=== PATIENT | male | born 1995 | race Caucasian/White ===

== ENCOUNTER 2018-03-11 22:41 | Emergency (ER) | payer SELFPAY ==
[~2018-03-11] VITALS: Ht 172.7 cm; Wt 97.8 kg
--- NOTE | 2018-03-11 22:44 | ED.ADGEN ---
Past History Past Medical History: Other Adult General Chief Complaint Chief Complaint ".. I got hit in the head with a log.."..." We were trimming tree... and the log fell about 25 feet and hit me in the head and this shoulder (Rt.).. It did not knock me out.... but I did see stars... and I was hurting pretty bad until I got a couple drinks onboard..." HPI HPI Patient is a 22 year old male who presents with above hx and complaints of headache and Lt shoulder and chest pain. Pt. injury occurred approximately 2 hrs ago. Pt. has 10 x 8 cm hematoma to posterior Lt. scalp, abrasion and contusion to Lt shoulder and chest. Pt. patient does give a history of a remote head concussion prior to today's injury. Patient did consume some alcohol before arrival to treat his pain. Patient is ambulatory without problems. Friends with him say his mental status is somewhat off. Patient has no pre-or post event amnesia. Patient normally follows with Dr. Hilton Review of Systems Review of Systems Constitutional: Denies fever or chills [] Eyes: Denies change in visual acuity, redness, or eye pain [] HENT: Denies nasal congestion or sore throat [] Respiratory: Denies cough or shortness of breath [] Cardiovascular: No additional information not addressed in HPI [] GI: Denies abdominal pain, nausea, vomiting, bloody stools or diarrhea [] : Denies dysuria or hematuria [] Musculoskeletal: Denies back pain or joint pain [] Integument: Denies rash or skin lesions [] Neurologic: Complains of headache. Denies focal weakness or sensory changes [] Endocrine: Denies polyuria or polydipsia [] All other systems were reviewed and found to be within normal limits, except as documented in this note. Family History Family History Noncontributory Current Medications Current Medications Current Medications Medications (Trade) Dose Ordered Sig/Katina Start Time Stop Time Status Last Admin Dose Admin Ondansetron HCl (Zofran Odt) 8 mg 1X ONCE 03/11/18 23:00 03/11/18 23:31 DC 03/11/18 23:00 8 MG Allergies Allergies Allergies Coded Allergies Type Severity Reaction Last Updated Verified No Known Drug Allergies 04/01/15 No Physical Exam Physical Exam Constitutional: Well developed, well nourished, moderately acute distress, non- toxic appearance. [] HENT: Normocephalic, contusion left posterior scalp area as per history of present illness, bilateral external ears normal, oropharynx moist, no oral exudates, nose normal. [] Eyes: PERRLA, EOMI, conjunctiva normal, no discharge. [] Neck: Normal range of motion, muscle tenderness, supple, no stridor. [] Some muscle spasms noted. No mid line tenderness. Cardiovascular:Heart rate regular rhythm, no murmur [] Lungs & Thorax: Bilateral breath sounds equal apex with scattered wheezes auscultation []contusions to posterior left chest wall Abdomen: Bowel sounds normal, soft, no tenderness, no masses, no pulsatile masses. [] Skin: Warm, dry, no erythema, no rash. [] Back: No tenderness, no CVA tenderness. [] Extremities: No tenderness, no cyanosis, no clubbing, ROM intact, no edema. Except Contusion and abrasion left shoulder. Distal neurovascular grossly intact. DTRs are +2 at patella and brachial. Clinical Cytogenetics Director equal. Right-hand dominant. Neurologic: Alert and oriented X 3, normal motor function, normal sensory function, no focal deficits noted. Psychologic: Affect anxious., judgement normal, mood normal. [] Current Patient Data Vital Signs Vital Signs Date Time Temp Pulse Resp B/P (MAP) Pulse Ox O2 Delivery O2 Flow Rate FiO2 03/11/18 22:43 98.3 87 20 100 Room Air EKG EKG [] Radiology/Procedures Radiology/Procedures I interpretation of CT of head and cervical show[] Course & Med Decision Making Course & Med Decision Making Pertinent Labs and Imaging studies reviewed. (See chart for details) Avoid further alcohol tonight. Take Tylenol for pain. Follow-up primary care. Return if any concerns. Concussion precautions given. [] Final Impression Final Impression 1. Contusion 2. Concussion[] Dragon Disclaimer Dragon Disclaimer This electronic medical record was generated, in whole or in part, using a voice recognition dictation system. ÁLVARO DELAROSA MD Mar 11, 2018 22:44
[2018-03-11] MEDS ORDERED: ONDANSETRON ODT 4 MG TAB.RAPDIS PO ONE (23:00)
--- NOTE | 2018-03-11 23:52 | RAD ---
PQRS Compliance Statement: One or more of the following individualized dose reduction techniques were utilized for this examination: 1. Automated exposure control 2. Adjustment of the mA and/or kV according to patient size 3. Use of iterative reconstruction technique CT HEAD AND CERVICAL SPINE WITHOUT CONTRAST History: Hit with log tonight. Swelling and abrasion at back left side of head Comparison: None. Procedure: Axial images are obtained of the head from the skull base through the vertex without IV contrast. Noncontrast helical CT of the cervical spine was performed. Axial, sagittal, and coronal reconstructions were obtained. Findings: The ventricles and sulci are normal for the patient's age. No mass-effect, midline shift, hemorrhage or obvious acute infarction is identified. Basilar cisterns are patent. Bone windows demonstrate no significant calvarial abnormality. Mild induration left parietal scalp. Mucosal thickening bilateral ethmoid sinuses. Mastoid air cells are well aerated. There is no evidence of acute fracture or acute malalignment of the cervical spine. Straightening and mild reversal of normal cervical lordosis may be positional or due to muscle spasm. The facet joints are intact. There is no disc space narrowing. Craniovertebral junction is normal. No significant narrowing of the central canal is identified. Visualized soft tissues of the neck demonstrate no significant abnormalities. The visualized lung apices are clear. IMPRESSION: 1. No acute intracranial abnormality. 2. No acute fracture of the cervical spine. Electronically signed by: Bart Verma MD (03/11/2018 11:48 PM) [facility]
[2018-03-12 00:08] VITALS: BP 148/78
--- NOTE | 2018-03-12 08:07 | RAD ---
CHEST PA LATERAL, SHOULDER 2+V LEFT Technique: PA and lateral views of the chest were obtained. Clinical History: Hit with log tonight Comparison: None. Findings: The heart and pulmonary vasculature appear within normal limits. The lungs are clear. The pleural margins are clear. Impression: No acute chest process is seen. End impression Three views left shoulder History: pain Internally and externally rotated AP of shoulder obtained, as well as "Y" view. The glenohumeral relationship is normal. The visualized osseous structures appear normal. Impression: No acute findings. end impression Electronically signed by: Nico Rosa III, MD (03/12/2018 8:04 AM) [facility]
== END 2018-03-12 00:09 | disposition home or self-care (01) ==
LOC: ER 22:41
DX: S06.0X0A Concussion without loss of consciousness, initial encounter (principal); S40.012A Contusion of left shoulder, initial encounter; S20.212A Contusion of left front wall of thorax, initial encounter; S00.03XA Contusion of scalp, initial encounter; W20.8XXA Other cause of strike by thrown, projected or falling object, initial encounter; Y93.H2 Activity, gardening and landscaping; Y92.89 Other specified places as the place of occurrence of the external cause; Y99.8 Other external cause status
CPT/HCPCS: 70450; 71046; 72125; 73030; 99284; Q0162